=== PATIENT | female | born 1960 | race Caucasian/White ===

== ENCOUNTER → 2020-03-24 07:45 | Outpatient (CLI) | payer BC, SELFPAY ==
--- NOTE | ~2020-03-24 | US_ITS ---
US abdomen limited DATE: 03/24/2020 08:10 INDICATION: Right upper quadrant abdominal pain TECHNIQUE: Real-time imaging of liver, pancreas, gallbladder areas COMPARISON: 02/25/2015 CT abdomen pelvis FINDINGS: No hepatic or pancreatic space-occupying mass lesion. Normal hepatopedal portal venous flow direction. No gallstones or gallbladder wall thickening or abnormal pericholecystic fluid collection. The common bile duct measures 3.6 mm, normal. IMPRESSION: Negative examination Reviewed, dictated and finalized at [facility]. Reviewed, dictated and finalized at [facility]. IMPRESSION: Negative examination
== END ==
PROVIDERS: PCP Family Medicine; Visit Provider Surgery
DX: R10.11 Right upper quadrant pain (principal)
CPT/HCPCS: 76705

== ENCOUNTER → 2020-03-26 09:07 | Outpatient (CLI) | payer BC, SELFPAY ==
--- NOTE | ~2020-03-26 | CT_ITS ---
EXAMINATION: CT abdomen pelvis w con DATE: 03/26/2020 09:43 INDICATION: Right upper quadrant abdominal pain TECHNIQUE: Computed tomography (CT) of the abdomen and pelvis was performed with 100 cc Omnipaque 350 intravenous contrast. Automated exposure control and iterative reconstruction technique were employe d. Exam dose: 443.03 mGy-cm total exam DLP. COMPARISON: 03/24/2020 limited abdominal ultrasound 01/25/2015 CT abdomen pelvis FINDINGS: The lung bases are clear. Normal heart size. No pericardial or pleural effusion. Stable very small hypoattenuating lesion of the lower right hepatic lobe, unchanged since 01/25/2015, most likely a very small hepatic cyst. Occasional hepatic and splenic calcified granulomas consistent with old granulomatous disease. Normal splenic size. No pancreatic mass lesion. The gallbladder is present and appears normal. No christina e duct or pancreatic duct dilatation. Normal left adrenal gland. 2.5 x 3.7 cm right adrenal mass with some calcification and some fat attenuation as well as soft tiss ue attenuation, likely an adrenal myelolipoma. This has increased mildly in size from the measurement of 2.1 x 3.3 cm on 01/25/2015. No renal mass lesion or urinary tract calculus or hydroureteronephrosis. The urinary bladder, uterus and adnexal areas are unremarkable. Normal appendix. Diverticulosis of the colon; no CT evidence of diverticulitis. No bowel obstruction, bowel wall thick ening, pneumatosis or intraperitoneal free air. Normal caliber of the abdominal aorta. No intraperitoneal or retroperitoneal or pelvic mass lesion or adenopathy or ascites. There are healing fractures of the anterior margin of the right ninth and 10th ribs. No suspicious osteolytic or osteoblastic lesions are noted. IMPRESSION: Stable very small probable right hepatic cyst, unchanged since 01/25/2015 2.5 x 3.7 cm right adrenal myelolipoma Diverticulosis of the colon Healing anterior right ninth and 10th rib fractures Reviewed, dictated and finalized at [facility]. Reviewed, dictated and finalized at [facility]. IMPRESSION: Stable very small probable right hepatic cyst, unchanged since 01/25 2.5 x 3.7 cm right adrenal myelolipoma Diverticulosis of the colon Healing anterior right ninth and 10th rib fractures
[2020-03-26 09:27] LABS: Estimated Glomerular Filt Rate > 60
== END ==
PROVIDERS: PCP Family Medicine; Visit Provider Surgery
DX: K57.30 Diverticulosis of large intestine without perforation or abscess without bleeding (principal); K76.89 Other specified diseases of liver; D35.01 Benign neoplasm of right adrenal gland
CPT/HCPCS: 74177; Q9967

== ENCOUNTER 2023-10-16 07:59 | Outpatient (CLI) | payer BC, SELFPAY ==
--- NOTE | ~2023-10-16 | US_ITS ---
Limited Abdominal Sonogram: Real-time sonographic imaging of the right upper quadrant was performed. Clinical History: Abdominal pain Findings: The liver appears normal with no evidence of mass lesion or bile duct dilatation. Main por juhi vein demonstrates normal direction of flow. The gallbladder is well distended, and appears normal with no evidence of gallstone or wall thickening. The common bile duct measures 5 mm. The visualize d pancreas, aorta, and IVC are unremarkable. Impression: No significant abnormality seen. Reviewed, dictated and finalized at location . Impression: No significant abnormality seen.
== END 2023-10-16 08:00 ==
PROVIDERS: PCP Family Medicine
DX: R10.9 Unspecified abdominal pain (principal)
CPT/HCPCS: 76705

== ENCOUNTER 2023-10-20 11:30 | Outpatient (CLI) | payer BC, SELFPAY ==
--- NOTE | ~2023-10-20 | NM_ITS ---
EXAMINATION: NM hepatobiliary w pharm DATE: 10/20/2023 13:46 INDICATION: Right upper quadrant abdominal pain. COMPARISON: CT abdomen and pelvis 03/26/2020 TECHNIQUE: 3.5 mCi Tc-99m mebrofenin (Choletec) was administered intravenously. Scintigraphic images of the abdomen were obtained for one hour. Then, 1.6 mcg sincalide (Kinevac) IV was administered, an d imaging was continued for 30 minutes. FINDINGS: There is normal clearance of radiotracer from the blood pool. There is homogeneous tracer u ptake by the liver. Activity progresses to the bowel and gallbladder. Gallbladder ejection fraction (GBEF) was 89%. Note that most patients with gallbladder dysfunction have GBEF < 35%, which overlaps with the broad normal range of 10-90%. IMPRESSION: 1. Normal hepatobiliary scintigraphy. Reviewed, dictated and finalized at location [facility].
== END 2023-10-20 11:31 | disposition home or self-care (01) ==
PROVIDERS: PCP Family Medicine
DX: R10.11 Right upper quadrant pain (principal)
CPT/HCPCS: 78227; A9537; J2805

== ENCOUNTER 2023-11-03 13:14 | Outpatient (CLI) | payer BC, SELFPAY ==
--- NOTE | 2023-11-03 14:22 | ECG_ITS ---
[facility] [address] Test Date: 2023-11-03 Pat Name: Luly Martinez Department: Room: Gender: F Designer/Writer: : 1960 Requested By: Bethel Sepulveda Order Number: [id number] Su MD: Christo Silva M.D. Measurements Intervals Independence Rate: 74 P: 80 [place]: 142 QRS: 36 QRSD: 77 T: 47 QT: 365 QTc: 406 Interpretive Statements SINUS RHYTHM NORMAL ELECTROCARDIOGRAM No previous ECG available for comparison Electronically Signed On 11-04-2023 07:56:45 CDT by Christo Silva M.D.
[2023-11-03 14:50] LABS: Anion Gap 6 mmol/L (4-12); Blood Urea Nitrogen 7 mg/dL (7-17); Calcium 9.5 mg/dL (8.4-10.2); Carbon Dioxide 29 mmol/L (22-30); Chloride 100 mmol/L (98-107); Estimated Glomerular Filt Rate > 60; Glucose 228 mg/dL (65-110); Potassium 3.8 mmol/L (3.4-5.0); Sodium 135 mmol/L (137-145)
[2023-11-03 14:51] LABS: Alanine Aminotransferase 23 U/L (6-35); Albumin Level 4.1 g/dL (3.5-5.1); Alkaline Phosphatase 95 U/L (38-126); Amylase 54 U/L (30-110); Aspartate Amino Transferase 22 U/L (14-36); Bilirubin,Total 0.5 mg/dL (0.2-1.3); Lipase 91 U/L (23-300)
== END 2023-11-03 13:15 | disposition home or self-care (01) ==
PROVIDERS: Anesthesiology; PCP Family Medicine; Visit Provider Surgery
DX: K81.1 Chronic cholecystitis (principal); E11.65 Type 2 diabetes mellitus with hyperglycemia; I10 Essential (primary) hypertension
CPT/HCPCS: 36415; 80048; 80076; 82150; 83690; 93005

== ENCOUNTER 2023-11-13 01:11 | Day surgery (SDC) | payer BC, SELFPAY ==
[2023-11-02 14:39] VITALS: BMI 29.7
--- NOTE | 2023-11-02 14:41 | PC.NURSE ---
Report to the Outpatient Waiting Room, entrance under the green pavilion located off [facility], at time _1215_ on date _[id number]_. Planned Procedure Time: _215pm_. Time changes happen often and if your time is changed the preop area will call you the afternoon before. - You and your visitor will be asked to self-screen and do not enter if you have any COVID symptoms. - A mask is optional within the hospital at this time. Patients may have clear liquids (water, carbonated beverages, clear teas, apple juice) until 3 hours prior to surgery with a maximum of 20 ounces. - No food from midnight until time of surgery Take the following medications with a SIP of water the morning of surgery: ___None DO NOT STOP ANY OF YOUR OTHER PRESCRIPTION MEDICATIONS PRIOR TO SURGERY ?EXCEPT THE FOLLOWING Medications to discontinue per physician None Date to take last dose Please no make-up, nail kiswahili, hairspray, perfume, deodorant, or body powder the day of surgery. No jewelry (including any body piercings) or valuables the day of surgery, leave them at home. Please take a shower or bath the night before, or the morning of, surgery with an antibacterial soap. Wear comfortable, loose fitting clothing. - Jewelry must be removed prior to entering the operating room. Rings and piercings that are not removed may be cut off. - The hospital will not accept responsibility for valuables. - Please leave all valuables, including medications, at home the day of surgery. If you are going home after surgery, a licensed lumber driver must drive you home. - NO public transportation without another adult if you receive anesthesia. - We recommend that an adult stay with you for 24 hours following discharge. - We also recommend that you do not drive, make important decision, drink alcoholic beverages, or take any drugs that were not prescribed by your health care provider for at least 24 hours after your discharge time. Follow any additional instructions given to you from your surgeon. If you or anyone in your household have experienced Covid symptoms in the past week, please notify your surgeon or the nurse liaison at the phone number below for possible testing. Telephone instructions given to _Luly__and asked if any additional questions and then verbalized understanding. Patient advised to call surgeon office or pre surgery nurse liaison [phone] if any additional questions.
[2023-11-13] VITALS (8 sets, daily range): BP systolic 147–172; BP diastolic 50–92; PULSE 70–82; RESP 10–20; TEMP 36.6–37.1; O2SAT 93–100
--- NOTE | 2023-11-13 12:03 | WPDHPUPDATE1 ---
History and Physical Update Update Date/Time: 11/13/23 12:03 History and Physical has been reviewed, including an updated exam of the patient. There are NO changes in the patient's condition. Risks, benefits, and alternatives have been discussed and questions answered. Patient agrees to proceed with procedure.
[2023-11-13] MEDS: ACETAMINOPHEN 500 MG TABLET 1000 MG PO (13:00)
[2023-11-13] MEDS: LACTATED RINGERS 1,000 ML 30 ML IV CONT (13:00)
[2023-11-13] MEDS: KETOROLAC 15 MG/ML VIAL (*BKC) IV PUSH (13:00)
[2023-11-13 13:18] LABS: Glucose Point of Care 182 mg/dl (65-105)
--- NOTE | 2023-11-13 14:53 | WPDANESEPPF ---
Anes - Initial Pre Proc Eval Procedure: Operation Date: 11/13/23 14:15 Proposed Procedures p Laparoscopic Cholecystectomy - Kristen Hunter MD Date/Time: 11/13/23 14:53 Surgeon: Kristen Hunter MD Pre Op Diagnosis: chronic cholecystitis Patient Data Age: 63 Gender: F Height: 1.63 m Weight: 78.63 kg Last Vital Signs Temp 98 F 11/13/23 13:30 Pulse 74 11/13/23 13:30 Resp 14 11/13/23 13:30 BP 158/52 H 11/13/23 13:30 Pulse Ox 97 11/13/23 13:30 O2 Del Method Room Air 11/13/23 13:30 Allergies Allergy/AdvReac Type Severity Reaction Status Date / Time Penicillins Allergy Severe Hives / Verified 11/13/23 14:24 Red Face codeine Allergy Mild HIVES Verified 11/13/23 14:24 Sulfa (Sulfonamide Allergy Mild RASH Verified 11/13/23 14:24 Antibiotics) dulaglutide [From Trulicity] AdvReac Mild Vomiting Verified 11/13/23 14:24 venlafaxine [From Effexor] AdvReac Nausea Verified 11/13/23 14:24 Home Medications Medication Instructions Recorded Confirmed Type aspirin 81 mg chewable tablet 81 mg PO DAILY 03/18/20 11/02/23 History atorvastatin 40 mg tablet 40 mg PO DAILY 03/18/20 11/02/23 History ezetimibe 10 mg tablet 10 mg PO DAILY 03/18/20 11/02/23 History lisinopril 10 mg tablet 10 mg PO DAILY 03/18/20 11/02/23 History insulin glargine 100 unit/mL (3 10 unit subcut QPM 03/19/20 11/02/23 History mL) subcutaneous pen (Lantus Solostar U-100 Insulin) metformin 500 mg tablet,extended 1,000 mg PO DAILY 11/13/23 11/13/23 History release 24 hr Laboratory Tests 11/13/23 13:16 POC Capillary Glucose 182 H mg/dl (65-105) Patient hx anesthesia problems: none Family hx anesthesia problems: none Results Review: All pre-operative results and documents have been reviewed as part of the pre-operative evaluation. [facility] Past Medical History Medical History Diabetes type 2, controlled High blood pressure High cholesterol Surgical History Surgical History H/O hand surgery left hand 2011 H/O removal of cyst right hand 1994 History of delivery 1990 History of endometrial ablation 2011 History of tubal ligation 1995 Hx of rhinoplasty 1982 Family History Family History Mother Diabetes mellitus Grandparent Diabetes mellitus Other Family history of congestive heart failure Social History Social History Smoking packs per day: 0.75 Smoking cigarettes per day: 15.0 Years smoked: 20 Smoking pack-years: 15.00 Smoking status: Former smoker Tobacco type: cigarettes Smoking end date: 11/01/21 Alcohol intake: never Do You Feel Safe in your Home?: Yes Lack of Transportation: No Lack of Food: Never True Current Housing: I Have Housing Concerned About Future Housing: No Difficulty Paying Gas/Electric Bills: No Difficulty Paying for Meds: No Currently Unemployed: No Education: Master's Degree or Higher Difficulty w/ Childcare or Family Care: No Living arrangements: with family Occupation/Education: occupation Additional occupation/education comments: [employer] Spiritual care concerns: No Anes - Eval Final PreProcedure Day of Procedure 11/13/23 14:53 Patient weight: obese Heart: regular rate and rhythm Lungs: clear to auscultation Airway: Mallampati scale and special considerations (Edentulous. ) Neurological: alert and oriented Last oral intake: >/= 8 hours ASA classification: III Emergent: no Anesthetic plan: proceed Anesthesia type and monitoring: general ETT and standard monitoring Results Review: All pre-operative results and documents have been reviewed as part of the pre-operative evaluation. HTN, hyperlipidemia, DM (fsbs 182), ex smoker, quit approx
[2023-11-13] MEDS: ceFAZolin 2 GM/D5W 50 ML 2 GM/50 ML BAG IVPB (15:18)
[2023-11-13] MEDS: SCOPOLAMINE 1 MG PATCH 1 PATCH TRANSDERM (15:20)
[2023-11-13] MEDS: BUPIVACAINE/EPINEPHRINE 0.5% 10 ML VIAL 30 ML INFILTRATE (15:43)
--- NOTE | 2023-11-13 16:07 | W.PM.PROC2 ---
Procedure Note - Detailed Date of Procedure 11/13/23 Pre-op Diagnosis chronic cholecystitis Post-op Diagnosis Same Procedure Performed Laparoscopic cholecystectomy Surgeon Kristen Hunter MD Anesthesia General Indications 63-year-old female presented to the office complaining of postprandial right upper quadrant abdominal pain associated with nausea and vomiting. Workup including imaging significant for chronic cholecystitis. Findings Moderate cholecystitis Description of Procedure The patient was taken to the operating room placed in the supine position. After adequate induction of general anesthesia, the patient was prepped and draped in normal sterile fashion. A time-out was then performed to verify the patient's identity as well as the procedure being performed. I then made a 5 mm incision in the infraumbilical region. Through this, a Veress needle was placed into the peritoneal cavity and CO2 gas was then insufflated. After adequate pneumoperitoneum was achieved, the Veress needle was removed and a 5 mm optiview trocar was placed through this incision under direct visualization. I then placed the laparoscope through this trocar site and under direct visualization placed a further 12 mm subxiphoid port as well as 2 additional 5 mm ports in the right upper abdomen. The gallbladder was then identified and was noted to be moderately inflamed and distended. I was able to place a grasper at the dome of the gallbladder and this was retracted anterior and cephalad up over the liver. A 2nd retractor was then placed at the infundibulum and retracted laterally, this allowed visualization of the triangle of Calot. I then was able to visualize the cystic duct in its entirety from its proximal insertion into the gallbladder, to its distal junction with the common hepatic/common bile duct junction. At this point, I carefully skeletonized the proximal cystic duct with the [place] dissector. I then clipped and transected the proximal cystic duct. Next I visualized the cystic artery. Again the artery was skeletonized, clipped, and transected. I then used the Bovie cautery to take down the peritoneal attachments of the gallbladder off the liver bed. Once the gallbladder specimen was completely detached, an endo-pouch was placed through the 12 mm port site. I then placed the gallbladder specimen into the Endo pouch and removed the endo-pouch from the 12 mm port site. The specimen will now be sent to pathology for further review. I then copiously irrigated the right upper quadrant. Some mild oozing was noted in the liver bed and this was controlled with the bovie cautery. Hemostasis was noted in the liver bed, the clips were noted to be in good position on both the cystic duct stump and the cystic artery stump. No other pathology was noted in the right upper quadrant. I then moved the laparoscope to the subxiphoid port. No iatrogenic injury or other pathology was noted in the lower abdomen. I then closed the 12 mm trocar site under direct visualization using the Timur cone and 0 Vicryl suture. At this point, the abdomen was desufflated and all ports removed. All port sites were then closed with 4.O Monocryl subcuticular sutures. Dermabond was placed on each incision. The patient tolerated the procedure well, was extubated in the operating room postoperative and will be transferred to the recovery room in stable condition Estimated Blood Loss 10 Drains No Packing No Pathology Yes Complications No immediate complications Condition Stable Disposition PACU [facility] Billing Surgery - Charge Forward: Surgery Billing
[2023-11-13 16:48] LABS: Glucose Point of Care 147 mg/dl (65-105)
[2023-11-13] MEDS: traMADol HCL (*CRX) 50 MG TABLET PO (17:19)
== END 2023-11-13 18:15 | disposition home or self-care (01) ==
PROVIDERS: PCP Family Medicine; Visit Provider Surgery
PROC: 0FT44ZZ Resection of Gallbladder, Percutaneous Endoscopic Approach (ICD-10-PCS; CPT 47562; principal; 2023-11-13 14:15)
DX: K81.1 Chronic cholecystitis (principal); E11.9 Type 2 diabetes mellitus without complications; I10 Essential (primary) hypertension; E78.00 Pure hypercholesterolemia, unspecified; Z79.4 Long term (current) use of insulin; Z79.84 Long term (current) use of oral hypoglycemic drugs; Z87.891 Personal history of nicotine dependence; E66.9 Obesity, unspecified; Z68.29 Body mass index [BMI] 29.0-29.9, adult
CPT/HCPCS: 47562; 82948; 88304; A9270; J0690; J1100; J1885; J2250; J2405; J2704; J3010; J7120

== ENCOUNTER 2024-10-02 09:21 | Outpatient (CLI) | payer BC, SELFPAY ==
--- NOTE | ~2024-10-02 | XR_ITS ---
AP and lateral views of the left hip Clinical history: Pain Findings: No acute fracture or dislocation is seen. Osseous alignment is anatomic. Left hip joint spa ce is intact. Soft tissues are unremarkable. Impression: No significant abnormality is seen. Reviewed, dictated and finalized at location . Impression: No significant abnormality is seen.
== END 2024-10-02 09:22 | disposition home or self-care (01) ==
LOC: MICIMG 09:23
PROVIDERS: PCP Family Medicine
DX: M25.552 Pain in left hip (principal)
CPT/HCPCS: 73502

== ENCOUNTER 2024-10-16 13:28 | Outpatient (CLI) | payer BC, SELFPAY ==
--- NOTE | ~2024-10-16 | MR_ITS ---
MRI of the left hip Clinical history: Pain Technique: Coronal T1-weighted, T2-weighted, and proton-density fat-sat images, and axial T1-weighted and proton-density fat-sat images were acquired through the pelvis. Coronal T2-weighted images and c oronal, axial, and sagittal proton-density fat-sat images were acquired through the left hip. Findings: There is no fracture or avascular necrosis. Bone marrow signals of the proximal femora and pelvic bones are intact. Bilateral hip joint spaces are preserved without significant degenerative or erosive change. No significant joint effusion. No definite left acetabular labral tear. Visualized musculature about the pelvis and left hip is unremarkable. No muscle atrophy or edema seen . Visualized tendons are intact. No soft tissue mass or fluid collection seen. IMPRESSION: No significant abnormality seen. Reviewed, dictated and finalized at [facility].
== END 2024-10-16 13:29 | disposition home or self-care (01) ==
LOC: GOSHIMG 13:28
PROVIDERS: PCP Orthopaedic Surgery
DX: M25.552 Pain in left hip (principal)
CPT/HCPCS: 73721

== ENCOUNTER 2024-11-12 10:07 | Outpatient (CLI) | payer BC, SELFPAY ==
--- NOTE | ~2024-11-12 | MR_ITS ---
MRI of the lumbar spine Clinical History: Back pain Technique: Axial T2-weighted images, and sagittal T1-weighted, T2-weighted, and T2 fat-sat images wer e acquired. Findings: There is no fracture or subluxation of the lumbar spine. Vertebral bodies maintain normal h eight and alignment. Bone marrow signals are unremarkable. At L1-L2, there is no disc bulge or herniation. There is moderate facet hypertrophy. No spinal canal stenosis. There is mild left neural foraminal narrowing. Right neural foramen preserved. At L2-L3, there is disc bulge with advanced facet arthropathy, resulting in severe spinal canal steno sis/thecal sac compression. There is moderate to advanced bilateral neural foraminal narrowing. At L3-L4, disc bulge and severe facet overgrowth with severe spinal canal stenosis/thecal sac [place]. There is severe left neural foraminal narrowing, and mild right neural foraminal narrowing. At L4-L5, there is diffuse disc bulge with advanced facet arthropathy. There is mild to moderate cent ral canal stenosis. There is severe left neural foraminal narrowing, and moderate right neural forami nal narrowing. At L5-S1, there is no disc bulge or herniation. No spinal canal stenosis or neural foraminal narrowin g at this level. Paravertebral soft tissues are unremarkable. Impression: Severe degenerative spondylosis at L2-L3, L3-L4, and L4-L5, as detailed above. Reviewed, dictated and finalized at [facility]. Impression: Severe degenerative spondylosis at L2-L3, L3-L4, and L4-L5, as detailed above.
== END 2024-11-12 10:08 | disposition home or self-care (01) ==
LOC: GOSHIMG 10:08
PROVIDERS: Visit Provider Orthopaedic Surgery
DX: M47.816 Spondylosis without myelopathy or radiculopathy, lumbar region (principal); M46.1 Sacroiliitis, not elsewhere classified
CPT/HCPCS: 72148